=== PATIENT | female | born 1950 | race Asian ===

== ENCOUNTER 2022-12-02 13:01 | Outpatient (REF) | payer MEDICARE, SELFPAY ==
--- NOTE | ~2022-12-02 | MR_ITS ---
EXAMINATION: MR BRAIN WITHOUT AND WITH CONTRAST CLINICAL INFORMATION: Meningioma. COMPARISON: None available. TECHNIQUE: MRI of the brain was obtained using routine sequences without and following the administration of 7.5 mL of Gadavist intravenous contrast. FINDINGS: Moderately motion degraded exam. Changes of prior anterior vertex craniotomy for resection of an underlying mass. Chronic encephalomalacia of the superior frontal gyri bilaterally with hemosiderin staining. There is nonspecific slightly thickened linear enhancement along the right lateral margin of the falx cerebri, measuring approximately 0.4 x 2.6 x 1.3 cm. No demonstrated overtly suspicious nodular enhancement in this distribution. No focal restricted diffusion is demonstrated to suggest acute or subacute cerebral ischemia. No evidence of acute hemorrhagic products on heme-sensitive imaging. Additional scattered periventricular and deep white matter T2 FLAIR hyperintensities consistent with mild to moderate underlying microangiopathy. Proportional prominence of the ventricles and sulcal spaces without evidence of obstructive hydrocephalus. No abnormal mass effect. No midline shift. Normal appearance of the pituitary gland. Normal positioning of the cerebellar tonsils. Normal arterial and venous vascular flow voids are present. No abnormal contrast enhancement. Normal, homogeneous marrow signal. Moderate mucosal thickening of the paranasal sinuses. No signal abnormalities within the mastoids. Bilateral lens extractions. MR/MR head/brain wo/w con IMPRESSION: Moderately motion degraded exam. 1. Changes of prior anterior vertex craniotomy for resection of an underlying mass. Nonspecific slightly thickened linear enhancement along the right lateral margin of the falx cerebri. Within the limits of motion degradation, there is no demonstrated overtly suspicious nodular enhancement to strongly suggest disease recurrence. Comparison with prior exams if available would allow for better assessment of stability. 2. Chronic encephalomalacia of the bilateral superior frontal gyri with hemosiderin staining. 3. No acute intracranial abnormalities. No additional abnormal intracranial enhancement. 4. Mild to moderate underlying microangiopathy and generalized cerebral volume loss.
== END 2022-12-02 13:02 | disposition home or self-care (01) ==
LOC: HO.MRI 13:01
PROVIDERS: Visit Provider Psychiatry & Neurology Neurology
DX: D32.9 Benign neoplasm of meninges, unspecified (principal)
CPT/HCPCS: 70553; A9585

== ENCOUNTER 2024-12-13 12:00 | Outpatient (AMB) | payer MEDICARE, SELFPAY ==
--- NOTE | 2024-12-13 12:03 | MHC.OFFVIS ---
Intake Visit Reasons: 6 mnts dementia Accompanied by: Daughter Allergies No Known Allergies Allergy (Verified 12/13/24 12:08) Medication List - Last Reconciled 12/13/24 by Giselle Chahal CNP alendronate 70 mg PO QWEEK lisinopril 40 mg PO DAILY metformin 1,000 mg PO DAILY metoprolol tartrate 25 mg PO BID mirabegron ER (Myrbetriq) 50 mg PO DAILY nadolol 20 mg PO DAILY pravastatin 20 mg PO DAILY rifampin 150 mg PO BID sertraline 50 mg PO DAILY vibegron (Gemtesa) 75 mg PO DAILY HPI Comments Details: 74 yo woman with intracranial meningioma resection at [facility] in 2016, headaches, and multifactorial dementia. She was getting nervous and was afraid of getting lost or her daughter may leave her. Memory was slowly getting worse. She was here with her daughter. She was living with her son. Memory was declining some. She was more forgetful and was confused at times. She had trouble following conversations, especially if there were more than two people involved. Headaches were okay. She had 3 falls in the last 6 months, did not hit head. She had anemia and was being treated with iron infusions, last was last week. Sleep was okay, but still having vivid dreams. [facility] Medical History (Updated 12/13/24 @ 12:07 by Giselle Chahal CNP) Multifactorial dementia Mild dementia Cerebral microvascular disease Encephalomalacia Peripheral neuropathy Migraine MCI (mild cognitive impairment) Meningioma Diabetes mellitus Review of Systems Const Denies chills, Denies daytime sleepiness, Reports difficulty sleeping, Denies fatigue, Denies fever(s), Denies frequent falls, Reports headache(s), Denies increased appetite, Reports poor appetite, Denies snoring, Denies weakness, Denies weight gain and Denies weight loss Eyes Denies loss of vision ENT Denies vertigo, Denies dizziness and Reports headache(s) Card Denies chest pain at rest, Denies chest pain with activity, Denies syncope, Denies leg edema and Denies palpitations Resp Denies snoring GI Denies constipation, Denies heartburn, Denies diarrhea and Denies nausea Denies urinary frequency, Denies urinary incontinence and Denies urinary urgency Musc Denies abnormal gait, Denies numbness and Denies tingling Skin/Breast Denies dry skin and Denies rash Neuro Denies abnormal gait, Denies vertigo, Denies dizziness, Denies syncope, Denies frequent falls, Reports headache(s), Denies lack of coordination, Denies loss of vision, Reports memory loss, Denies numbness, Denies restless legs, Denies seizure-like activity, Denies tingling, Denies paresthesias, Denies tremor(s) and Denies weakness Psych Reports anxiety, Reports depression, Denies auditory hallucinations, Reports memory loss, Denies visual hallucinations and Denies suicidal ideation Endo Denies fatigue and Denies palpitations Physical Exam Const Other: General Appearance:? normal, in no acute distress. Skin:? no rashes, no significant birthmarks. Heart:? S1, S2 normal, no murmurs. Lungs:? clear anteriorly and posteriorly. Extremities:? no edema. Psych:? alert, cooperative with exam. Neuro Other: Mental Status:?Alert, normal affect.?She is unable to tell me her age. She was able to tell me her birthdate. Cranial Nerves:?Pupils are equal, round and reactive to light. External occular muscles are intact. Visual guillen are full. Face is symmetrical. Facial sensations are normal. Tongue is midline. Palate elevates symmetrically. Shoulder shrugging is normal. Hearing to bedside conversation is normal. Sensory Exam:?....? Coordination:?No ataxia,?no titubation.? Gait Exam: Within normal limits. Cerebellar Signs:?Idfjde-de-ysas was okay. Extrapyramidal System:?No tremor, rigidity with normal facial expressions.? Pronator Drift:?Not present.? Involuntary Movements:?No tremors seen.? Speech:?Normal.? Assessment & Plan Assessment & Plan (1) Multifactorial dementia: Code(s): F03.90 - Unspecified dementia, unspecified severity, without behavioral disturbance, psychotic disturbance, mood disturbance, and anxiety Category: Medical Plan: Continue sertraline 50mg 1 tablet daily Discussed other treatment options available, including addition of donepezil or memantine, declining at this time. (2) Migraine: Code(s): G43.909 - Migraine, unspecified, not intractable, without status migrainosus Category: Medical Qualifiers: Migraine type: unspecified Status migrainosus presence: without status migrainosus Intractability: not intractable Qualified Code(s): G43.909 - Migraine, unspecified, not intractable, without status migrainosus Plan: . Medications: New sertraline 50 mg PO DAILY 90 tabs 1RF 90 days Discontinued sertraline Discontinued Reason: Order 50 mg PO DAILY Coding Level of Care Code Est Pt Level 4 (32259) Diagnoses Multifactorial dementia F03.90 Migraine without status migrainosus, not intractable, unspecified migraine type G43.909 Migraine type: unspecified Status migrainosus presence: without status migrainosus Intractability: not intractable
--- OUTSIDE RECORDS SUMMARY | 2024-12-13 12:56 | XMS_ITS | Clinical Summary ---
Author Organization [address] Address [address] [place] [phone] Phone Care Team Providers Care Immigration Associate Name Role Phone Unavailable Primary Care Provider Unavailabl e Social History Tobacco Use Types Packs/Day Years Used Date Smoking Tobacco: Never Assessed Comments Unknown Sex and Gender Information Value Date Recorded Sex Assigned at Not on file Legal Sex Female 9:33 AM EST Gender Identity Not on file Sexual Orientation Not on file Plan of Treatment Health Maintenance Due Date Last Done Comments HIV screening 01/10/1961 Hepatitis C screening 01/10/1966 Tetanus adult (Td q 10,TDAP once) 1968 Lipid disorder screening 1988 Diabetes screening 01/10/1993 Pneumococcal Vaccine (50+ ye ars) (1 of 1 - PCV) 01/10/1998 Shingles vaccine (Shingrix) (1 of 2 - Shingrix (RZV) 2 Dose Standard Series) 01/10/1998 Osteoporosis screening (bone density) 01/10/2013 RSV Immunization (1 - 1-dose 75+ series) 01/10/2023 Covid-19 vaccine series ( season) 2024 Influenza vaccine 01/24/2025 Breast cancer screening Discontinued Cervical cancer screening Discontinued Colon cancer screening, Colonoscopy Discontinued Meningococcal Vaccine Aged Out No yuli lisset eligible based on patient's age to complete this topic
--- OUTSIDE RECORDS SUMMARY | 2024-12-13 12:56 | XMS_ITS | Encounter Summary ---
Author Organization [facility] Address [address] [place] [address] Phone Care Team Providers Care Filtering Machine Tender Name Role Phone Pcp, Not Required Primary Care Provider Unavaila ble Encounter Details Date Type Department Care Team ([facility] st Contact Info) Description 11/19/2020 Ophth Exam [facility] [address] [place] [address] Letitia Lewis MD [address] [place] [address] [email or web address]. U Social History Tobacco Use Types Packs/Day Years Used Date Smoking Tobacco: Never Smokeless Tobacco: Never Alcohol Use Standard Drinks/Week Comments Not Currently 0 (1 standard drink = 0.6 oz pur e alcohol) Comments No Sex and Gender Information Value Date Recorded Sex Assigned at Not on file Legal Sex Female 9:38 AM EDT Gender Identity Not on file Sexual Orientation Not on file documented as of this encounter Plan of Treatment Not on file documented as of this encounter Visit Diagnoses Not on filedocumented in this encounter Care Teams Filtering Machine Tender Relationship Specialty Start Date End Date Pcp, Not Required [address] [place] [address] PCP - General 11/19/20 documented as of this encounter Additional Source Comments The information contained in this document represents components of the legal health record. It is not the complete legal health record.[facility]
--- OUTSIDE RECORDS SUMMARY | 2024-12-13 12:56 | XMS_ITS | Encounter Summary ---
Author Organization [facility] Address [address] [place] [address] Care Team Providers Care Neurodiagnostic Tech Name Role Phone Jadyn Alvarado DO Primary Care Provider [phone] Reason for Visit * Reason Comments Anemia Encounter Details Date Type Department Care Team (Late Contact Info) Description 11/18/2024 Billing Patient Not Present Gastroenterology - [address] [phone] Jules Fuller MD [address] [address] Social History Tobacco Use Types Packs/Day Years Used Date Smoking Tobacco: Never Smokeless Tobacco: Never Alcohol Use Standard Drinks/Week Comments No 0 (1 standard drink = 0.6 oz pur e alcohol) Interpersonal Safety Answer Date Record ed Physical Abuse 11/12/2024 Verbal Abuse 11/12/2024 Comments No Sex and Gender Information Value Date Recorded Sex Assigned at Female 11/23/2024 9:18 AM EDT Legal Sex Female 1:18 PM EST Gender Identity Female 11/23/2024 9:18 AM EDT Sexual Orientation Straight 11/23/2024 9: 18 AM EDT documented as of this encounter Plan of Treatment Upcoming Encounters Date Type Department Care Team (Late st Contact Info) Description 12/29/2024 11:30 AM EDT Office Visit Internal Medicine - [facility] [address] [place] [address] Jadyn Alvarado DO [address] [place] [address] 01/31/2025 10:00 AM EDT Office Visit [facility] Hematology Oncology [address] [place] [address] Kat Nam PA [address] [place] [address] documented as of this encounter Visit Diagnoses Not on filedocumented in this encounter Additional Health Concerns Assessment Noted Time PHQ-9 Depression Total Score: 0 07/12/19 25 9:07 AM EST documented as of this encounter Care Teams Neurodiagnostic Tech Relationship Specialty Start Date End Date Jadyn Alvarado DO [address] [place] [address] PCP - General 03/08/24 documented as of this encounter
--- OUTSIDE RECORDS SUMMARY | 2024-12-13 12:56 | XMS_ITS | Clinical Summary ---
Author Organization [facility] Address [address] [place] [address] Care Team Providers Care Forestry Supervisor Name Role Phone Mairna Goetz MD Primary Care Provider + Medications Medication Sig Dispensed Refills Start Date End Date Status pravastatin (PRAVACHOL) tablet 20 mg Take 20 mg by mouth daily. 1 06/10/2018 Active metoprolol succinate (TOPROL-XL) 24 hr tablet 25 mg Take 25 mg by mouth daily. 1 06/04/2018 Active lisinopril (PRINIVIL,ZESTRIL) tablet 30 mg Take 30 mg by mouth daily. 3 07/14/2018 Active REFRESH OPTIVE ADVANCED 0.5-1-0.5 % SOLN INSTILL 1 DROP INTO BOTH EYES 4 TIMES A DAY 6 07/11/2018 Active traMADol (ULTRAM) 50 MG tablet TAKE 1/2-1 TABLET BY MOUTH TWICE A DAY NEEDED FOR PAIN FOR UP TO 7 DAYS 0 07/23/2018 Active metFORMIN (GLUCOPHAGE) tablet 500 mg Take 500 mg by mouth 2 (two) times a day with meals. 0 Active aspirin EC 81 MG tablet Take 81 mg by mouth daily. 0 Active albuterol (PROVENTIL HFA;VENTOLIN HFA) 108 (90 Base) MCG/ACT inhaler Inhale 2 puffs into the lungs every 6 (six) hours as needed for wheezing. 0 Active alendronate (FOSAMAX) tablet 70 mg Take 70 mg by mouth every 7 days. 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 lower extremity 07/31/2018 Nondisplaced fracture of fif th metatarsal bone, left foot, initial encounter for closed fracture 07/31/2018 Social History Tobacco Use Types Packs/Day Years Used Date Smoking Tobacco: Never Smokeless Tobacco: Never Alcohol Use Standard Drinks/Week Comments No 0 (1 standard drink = 0.6 oz pur e alcohol) Sex and Gender Information Value Date Recorded Sex Assigned at Not on file Gender Identity Not on file Sexual Orientation Not on file Job Start Date Occupation Industry Not on file Not on file Not on file Last Filed Vital Signs Vital Sign Reading Time Taken Comments Blood Pressure - - Pulse - - Temperature - - Respiratory Rate - - Oxygen Saturation - - Inhaled Oxygen Concentration - - Weight 77.1 kg (170 lb) 07/31/2018 8:51 AM EST Height 165.1 cm (5' 5 ) 07/31/2018 8:51 AM EST Body Mass Index 28.29 07/31/2018 8:51 AM EST Plan of Treatment Health Maintenance Due Date Last Done Comments Hepatitis C Screening 1950 COVID-19 Vaccine (#1) 1950 Depression Screening 1960 Preventative Health Evaluation 01/10/1966 DTap / Tdap / Td (1 - Tdap) 01/10/1967 Shingrix-Zoster Vaccine (1 of 2) 01/10/1998 Fall Risk Assessment 01/10/2013 Osteoporosis Screening (DEXA Scan) 01/10/2013 Pneumococcal Vaccine (1 of 1 - PCV) 01/10/2013 RSV Adult > 60+ Yrs or Pregn ant (1 - 1-dose 75+ series) 01/10/2023 Influenza Vaccine (#1) 2025 Hepatitis B Vaccines Aged Out No long er eligible based on patient's age to complete this topic RSV Ped < 20 months Aged Out No longe r eligible based on patient's age to complete this topic Care Teams Forestry Supervisor Relationship Specialty Start Date End Date Marina Goetz MD [address] [facility] [address] [facility] [place] [phone] PCP - General Internal Medicine 07/13/18
--- OUTSIDE RECORDS SUMMARY | 2024-12-13 12:56 | XMS_ITS ---
Author Name Kiana MCNEILLLalo Address [address] [place] [address] Phone [phone] [facility] Care Team Providers Care It Consultant Name Role Phone Kiana Camilla Unavailable [phone] Signed ORDERS, [place] Unavailable Unavailable Unavailable Unavailable Unavailable Unavailable [phone] [facility] Unavailable Heydi Yeboah Unavailable [phone] Geronimo Mooney Unavailable [phone] YANET SNIDER Unavailable [phone] Reason for Referral Not Available Allergies, adverse reactions, alerts No known allergies History of medication use Medication Class Instructions Start Date End Date Alendronate Sodium 70 mg Tab TAKE 1 TABL ET BY MOUTH ONE TIME PER WEEK 2021-06-18 2024-10-26 Metoprolol Succinate ER 25 m g Tab ER 24hr TAKE 1 TABLET BY MOUTH EVERY DAY 2021-07-06 2024-10-26 Myrbetriq 50 mg Tab ER 24hr TAKE 1 TABLE T BY MOUTH EVERY DAY 2021-11-16 2024-10-26 Pravastatin Sodium 20 mg Tab TAKE 1 TABL ET BY MOUTH EVERY DAY 2021-09-11 No Data Available Lisinopril 40 mg Tab TAKE 1 TABLET BY MO UTH EVERY DAY 2021-11-29 No Data Available Moxifloxacin 0.5 % Solution USE 1 DROP I NTO LEFT EYE FOUR TIMES A DAY DIRECTED TO BEGIN 3 DAYS BEFORE SURGERY 2021-12-03 2022-12-12 metFORMIN 1000 mg Tab TAKE 1 TABLET BY M OUTH once DAILY (WITH MEALS) 2021-06-18 No Data Available Albuterol Sulfate (2.5 mg/3ML) 0.083% Nebulization Solution INHALE CONTENTS OF 1 VIAL BY NEBULIZATION EVERY 4 HOURS NEEDED FOR WHEEZING. 2022-03-13 2024-10-26 Advair HFA 45-21 MCG/ACT Aerosol INHALE 2 PUFFS INTO THE LUNGS TWICE A DAY 2022-03-22 2024-10-26 traMADol 50 mg Tab TAKE 1 TABLET BY DION TH EVERY 8 HOURS NEEDED FOR PAIN FOR UP TO 7 DAYS. 2022-04-05 2024-10-26 Artificial Tears 0.2-0.2-1 % Solution Ophthalmic 1 drop each eye at bedtime 2022-04-11 2024-10-26 traMADol 50 mg Tab 1 tab by mouth every 8 hrs 2023-08-11 Tylenol 8hr 650 mg Tab ER2 1 tab in the morning and 1 tab in the evening 2022-04-11 2024-11-08 Flovent HFA 110 MCG/ACT Aerosol INHALE 1 PUFF INTO THE LUNGS 2 TIMES DAILY 2022-10-17 2022-12-12 Fluticasone Propionate 50 MCG/ACT Suspension SPRAY 1 SPRAY BY INTRANASAL ROUTE TWICE A DAY DIRECTED 2022-06-18 2024-10-26 hydrOXYzine 10 mg Tab TAKE 1 TABLET BY M OUTH 2 TIMES DAILY NEEDED FOR ITCHING FOR UP TO 180 DAYS. 2022-08-20 2022-12-12 Oxybutynin Chloride ER 10 mg Tab ER 24hr TAKE 1 TABLET BY MOUTH EVERY DAY 2022-04-08 2022-12-12 predniSONE 20 mg Tab TAKE 2 TABLETS EVER Y DAY BY ORAL ROUTE IN THE MORNING FOR 3 DAYS. 2022-06-18 2022-12-12 Cetirizine 10 mg Tab TAKE 1 TABLET BY MO UTH EVERY DAY 2022-07-08 2024-10-26 GaviLyte-G 236 GM Solution TAKE 8 OUNCE BY MOUTH DIRECTED FOLLOW PREP INSTRUCTIONS GIVEN BY YOUR DOCTOR'S OFFICE 2023-02-19 2023-08-11 MELATONIN 1 MG TABLET TAKE 1 TABLET BY M OUTH AT BEDTIME NEEDED FOR INSOMNIA 2023-03-13 2024-10-26 Nadolol 20 mg Tab TAKE 1 TABLET BY DION TH EVERY DAY 2023-05-15 No Data Available [facility] TO USE WITH ALBU TEROL INHALER 2023-03-13 2024-10-27 Ferrous Sulfate 325 (65 Fe) MG Tab TAKE 1 TABLET BY MOUTH EVERY DAY 2023-02-04 No Data Available Lidocaine-Prilocaine 2.5-2.5 % Crm 1gm to affected area BID PRN neuropathic pain 2023-08-11 2024-10-26 DULoxetine 30 mg Cap delayed rel TAKE 1 CAPSULE BY MOUTH EVERY DAY 2023-08-11 2024-10-26 Meclizine 12.5 mg Tab TAKE 1 TABLET BY M OUTH TWICE A DAY NEEDED 2023-08-11 2024-10-26 Benzonatate 200 mg Cap TAKE 1 CAPSULE BY MOUTH THREE TIMES A DAY NEEDED FOR 7 DAYS 2022-06-18 2024-10-26 Sertraline 50 mg Tab TAKE 1 TABLET BY MO UTH EVERY DAY 2023-12-02 No Data Available Vitamin D (Ergocalciferol) 1.25 mg (42578 UT) Cap TAKE 1 CAPSULE (50,000 UNITS TOTAL) BY MOUTH ONCE WEEKLY 2024-03-29 2024-10-26 rifAMPin 150 mg Cap TAKE 1 CAPSULE BY MO UTH TWICE A DAY 2024-04-29 2024-10-26 Gemtesa 75 mg Tab TAKE 1 TABLET BY DION TH EVERY DAY 2024-05-13 No Data Available Cholestyramine 4 GM Packet 1 packet once a day 2024-05 No Data Available Methocarbamol 750 mg Tab TAKE 2 TABLETS BY MOUTH 3 TIMES A DAY FOR 7 DAYS NEEDED FOR SPASM 2024-07-02 2024-10-26 Lidocaine 5 % Patch APPLY 1 PATCH as nee ded APPLY TO PAINFUL AREA FOR 12 HOURS PER DAY, REMOVE FOR 12 HOURS 2024-07-12 No Data Available Albuterol Sulfate HFA 108 (9 0 Base) MCG/ACT Aerosol Solution Inhalation 2 puffs as needed 2024-10-26 No Data Available Breo Ellipta 200-25 MCG/ACT Aerosol Powder Breath Activated Inhalation TAKE 1 PUFF BY MOUTH EVERY DAY 2024-10-26 No Data Available osteo biflex she 1 tablet as need ed for knee pain 2024-10-26 No Data Available Problem List Problem Status Onset Date Resolved Date Synopsis Hyperlipidemia associated with type 2 diabetes mellitus Active 2022-04-11 N/A Cholesterol 12 2 TRIGLYCERIDES 100 HDL CHOLESTEROL 59 LDL CALCULATED 43 TC-HDLC RATIO 2.106/05/2022 Lfdpfhg-ciwcsgflfgm-dhmdouu Lipid panel-healthy diet-follow up with pcp Activity intolerance Active 2022-12-12 N/A Walk s for 20 meters, feels has sensation of SOB. Leg edema. visited ER. 12/04-12/05/22 leg edema. Severe anemia, 2 u of RBC. No record received yet. No change in medication. Also have work up done for CHF, pending Echo appointment per daughter.Leg edema gone, but SOB persisted, using inhalers. Now investigating if she has CHF by PCP, keep appointment of Echo and FUs Type 2 diabetes mellitus with chronic kidney disease Resolved 2022-04-11 2022-12-16 GLYCATED HEMOGLO BIN A1C 7.6 (H) 10/11/22GLUCOSE 198 (H) 10/11/22GLOMERULAR FILTRATION RATE 95 10/11/2265Cgjzotp-kydnovcei-wp abetic dietDoes not like to check BG at home. Fasting 150-160 range, recently increased metformin to 1000 BID, this should help to lower it futher Other problems related to medical facilities and other health care Active 2023-08-11 N/A .When memb er to call: 1. If bp is elevated sbp>150; dbp>90 or symptomatic-h/a, dizziness, cp, sob. 2. if there is a fall 3. if BS >300 or BS<90 or symptomatic; i.e., dizzy, off balance , shaky, general weakness. 4. if UTI symptoms arise-urinary frequency, dysuria, low and pain. 5. if pain in knees increases/ or joint pain increased Please remember to call CBContinue to see PCP. Follow-up with [facility] as needed for any acute or disease education needs that may arise 16/12.what should be done when the member calls: see each individual diagnosis for contingency plan Lumbago with sciatica Active 2022-04-11 N/A Man aged-TylenolSciatica to both sides. Radiates to knees on both sides. Worse with ambulation. Open to try cymbalta 30 mgLidocaine cream Ganglion cyst Active 2023-08-11 N/A Reoccurring last happened last year. It appears to be a ganglion cyst on the left mid-finger; see photo. Can use heat compress, if no resolving in 1 month, see PCP for aspiration. Can disappear by self Vertigo Active 2023-08-11 N/A Occurs daily u lucina wakening. No SOB or chest palpitation nor chest pain. No N or V. Member is to take BP when this occurs, usually self resolving in 10 minutes, can try meclizine as needed. Osteoporosis Active 2022-04-11 N/A Managed-daniel ashley weekly-routine diagnostics-follow up with pcp07/06/24-Eat a balanced diet with enough calcium, vitamin D, and protein. Good sources of protein include plant proteins like beans and nuts, low-fat dairy, fish, skinless poultry, and lean cuts of meat. Participate in regular physical activity, such as weight-bearing exercises, to help keep bones strong and lower the risk of falls. Keep routine follow up with local provider as scheduled and follow up with CB prn. Overactive bladder with Nocturia Active 2022-04-11 N/A Managed-Myrbetri q-routine follow up with pcp Overweight Resolved 2022-04-11 2024-11-01 Ngjlilw-vwvm-g ncourage regular exercise to include stretchingNo pain right now07/06/24Eat more fruits, vegetables, and whole grains, lean proteins and healthy fats Limit refined carbohydrates, sugar, and sweetened foods, Eat smaller portions, Eat slowly. Get routine exercise for at least 30 minutes 3 times weekly, start slow and work up. Get adequate sleep and maintain a healthy weight. Follow up prn. Type 2 diabetes mellitus with renal complication Resolved 2023-08-11 2024-07-09 Shikha kenyon, stable If her blood sugar is less than 70, and she is shaking, sweaty, and feels nausea, give 6 oz of fruit juice, or 4 glucose tablet, or 6 oz of soda to quickly raise blood sugar, recheck in 10 minutes, if still low, repeat. If above 70 and no symptoms, eat a small protein rich snack. Type 2 diabetes mellitus with stage 3a chronic kidney disease Active 2022-05-07 N/A Managed, most re cent GFR 98, 10/11/22-routine follow up-avoid nephrotoxic /11/25-Avoid nephrotoxic agents. Strict dietary management with reduced sodium, phosphorus, and potentially potassium depending on lab values, regular moderate exercise, blood pressure control, the condition and slow progression. History of meningioma Active 2023-08-11 N/A Rosa drake by [facility] neurosurgery starting in October 2014, Dr. Johns right frontal 5 x 4 x 4 cm calcified falcine meningioma with left arm and leg numbnessS/P resection 06/01/15; annual follow-up and MRI07/06/24-stable, continues to follow up with local provider annually for surveillance. Asthma with COPD Active 2022-04-11 N/A Managed- Breo Ellipta-albuterol INHHas neb machine. C ontingency plan:1. Start antibiotic(Azithromycin, doxycycline, or levaquin), prednisone 40 mg daily for 3 days, 2. Increase Neb treatments/MDI use to q4h x3 days3. Call CB at the first sign of SOB or increased cough and sputum production. 4. Schedule f/u with primary INSURANCE REPRESENTATIVE in 1-2 days. 07/06/24-Continue INH as directed Avoid cigarette smoke, smoke from fireplaces, and wood-burning stoves, avoid environmental exposures such as car exhaust fumes and avoid outdoor activities/exercise when pollution levels are high. Use zippered covers on mattresses and pillows, wash bedding in hot water, and remove clutter, avoid mold, avoid pets and cockroaches, avoid stress, cold air may trigger a flare, Avoid aerosol sprays and perfumes. Follow up prn.11/08/24 Breathing is ok. Hypertensive heart disease with stage 3a chronic kidney disease Active 2022-04-11 N/A Managed-L isinopril-metoprol ol succinateNadolol-routine follow up.Discussed low-salt dietwill monitor edema and weight, follows cardiologyMonitors BP daily If blood pressure is>170/90 and symptomatic with headache, dizziness, facial flashing, can take lisinopril 10 (give 1/2 tablet)*1, recheck BP in 1 hour, rest. If lower 90/50s and dizziness, lay flat, elevate legs over pillows, increase fluidscontinue CV medications. Monitor Bp daily and prn. Diabetic diet with low sodium and exercise as tolerated. Follow up 90 days. Unspecified dementia, unspecified severity, with mood disturbance Active 2024-07-09 N/A Rx: on ser tralineFamily / CG supportCalm and supportive environment, keep a consistent routine with ADLs engaging in physical activities such as walking can decrease mood / behavior issues. Follow up prn. Type 2 diabetes mellitus with unspecified diabetic retinopathy with macular edema, and dry eye syndrome of bilateral lacrimal glands Active 2022-04-11 N/A Managed-artifici al tears07/06/24-continue DM medications as directed. Monitor BG levels daily and prn. Diabetic diet with low sodium, exercise as tolerated. Routine follow up with Ophthalmology/Retina specialist to complete eye exams. Liver cirrhosis with History of hepatitis B, Portal hypertension, Secondary esophageal varices without bleeding Active 2023-08-11 N/A FU with GI10/21/24-10/22/24 [facility]: Hospitalized with anemia, concern for GI B. Received IV iron and one unit PRBC. 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 Plan for capsule endoscopy: 11/10/24. Continues with oral iron repletion. History of recent hospitalization Active 2024-11-01 N/A Hospital dischar ge paperwork requested/reviewed. [facility] 10/21/24-10/22/24, anemiaReason for Hospitalization and summary of hospital course: Subjective: Spoke to daughter Debbi and member. They have follow up to do a capsule endoscopy on 11/10/24. Denies abdominal pain, hematemesis, hematochezia. She has dark BMs, however she is on oral iron. Continues to feel fatigued. At times confused, doesn't understand what people are saying to her but this is not new. Has been experiencing weight loss due to low appetite. Weighed 149 lbs today, 11 lb weight loss since June 2024. She is not taking any nutritional supplements, would like to try Ensure. No falls since she has returned home. Discussed keeping her hydrated, count to 10 with positional changes, july in place prior to ambulating. She has an assistive device, but she does not like to use it. Daughter will encourage her to use it, discussed she can experience dizziness and fatigue due to anemia. Home Health or DME needs: Ensure for weight lossDiscussed risks or red flags for readmission/contingency plan.capsule endoscopy: 11/10/24, PCP visit is planned for: 12/27/24Advance care planning discussion - See Legal Weight lossDecreased appetiteFrailty Active 2024-11-01 N/A Daughter reports appetite is decreased over the past few months. Weight loss from 160 lbs in June 2024 > 149 lbs in October 2024 which is greater than 5% unintentional weight loss in the last 3-6 months. BMI still within healthy range at 24.79. Will order Ensure twice daily due to ongoing weight loss, decreased appetite, weakness, fatigue, frequent falls. 11/08/24 wanted to discuss to have vanilla flavor glucerna, but as member BMI is 25, may not be able to be approved, it's better to call back to company to check when vanilla is available. Encounters Encounters Type Facility Date of Service Diagnosis/Co mplaint Pain Assessment - Pain Documented on a Pain Scale (1125F) [facility] ([place]) 04[place]20[place] Pain Assessment - Pain Documented on a Pain Scale (1125F) [facility] [place] Pain Assessment - Pain Documented on a Pain Scale (1125F) [facility] [place] Pain Assessment - Pain Documented on a Pain Scale (1125F) [facility] [place] Pain Assessment - Pain Documented on a Pain Scale (1125F) [facility] [place] Pain Assessment - Pain Documented on a Pain Scale (1125F) [facility] [place] Pain Assessment - Pain Documented on a Pain Scale (1125F) [facility] [place]20[place] Pain Assessment - Pain Documented on a Pain Scale (1125F) [facility] [place]22 Pain Assessment - Pain Documented on a Pain Scale (1125F) [facility] [place]2022 Age-related osteoporosis without current pathological fractureType 2 diabetes mellitus with diabetic chronic kidney diseaseHypertensive chronic kidney disease w stg 1-4/unsp chr kdnyType 2 diabetes mellitus with other specified complicationHyperlipidemia, unspecifiedOveractive bladderNocturiaDry eye syndrome of bilateral lacrimal glandsLumbago with sciatica, unspecified sideOverweightChronic obstructive pulmonary disease, unspecifiedChronic kidney disease, stage 3 unspecified Estab. patient 30-39min; chronic exacerbation, 2 stable chronic or 1 acute illness add add modifier 95 for video, (do not use for phone, instead use [id number]) [facility] ([place] Chronic obstructive pulmonar y disease, unspecifiedAge-related osteoporosis without current pathological fractureType 2 diabetes mellitus with other specified complicationHyperlipidemia, unspecifiedOveractive bladderNocturiaDry eye syndrome of bilateral lacrimal glandsLumbago with sciatica, unspecified sideOverweightOther general symptoms and signsType 2 diabetes mellitus with diabetic chronic kidney diseaseHypertensive chronic kidney disease w stg 1-4/unsp chr kdnyChronic kidney disease, stage 3 unspecified Estab. patient 30-39min; chronic exacerbation, 2 stable chronic or 1 acute illness add add modifier 95 for video, (do not use for phone, instead use [id number]) [facility] [place] Estab. patient 30-39min; chronic exacerbation, 2 stable chronic or 1 acute illness add add modifier 95 for video, (do not use for phone, instead use [id number]) [facility] [place] Estab. patient 30-39min; chronic exacerbation, 2 stable chronic or 1 acute illness add add modifier 95 for video, (do not use for phone, instead use [id number]) [facility] ([place] Estab. patient 30-39min; chronic exacerbation, 2 stable chronic or 1 acute illness add add modifier 95 for video, (do not use for phone, instead use [id number]) [facility] ([place] 12/[place] Estab. patient 30-39min; chronic exacerbation, 2 stable chronic or 1 acute illness add add modifier 95 for video, (do not use for phone, instead use [id number]) [facility] [place] Estab. patient 30-39min; chronic exacerbation, 2 stable chronic or 1 acute illness add add modifier 95 for video, (do not use for phone, instead use [id number]) [facility] [place] Estab. patient 30-39min; chronic exacerbation, 2 stable chronic or 1 acute illness add add modifier 95 for video, (do not use for phone, instead use [id number]) [facility] [place] Estab. patient 30-39min; chronic exacerbation, 2 stable chronic or 1 acute illness add add modifier 95 for video, (do not use for phone, instead use [id number]) [facility] [place] Estab. patient 30-39min; chronic exacerbation, 2 stable chronic or 1 acute illness add add modifier 95 for video, (do not use for phone, instead use 44217-39) [facility] [place] Estab. patient 30-39min; chronic exacerbation, 2 stable chronic or 1 acute illness add add modifier 95 for video, (do not use for phone, instead use 09254-90) [facility] [place]/2022 Estab. patient 30-39min; chronic exacerbation, 2 stable chronic or 1 acute illness add add modifier 95 for video, (do not use for phone, instead use [id number]) [facility] ([place] 08/[place]/2023 Chronic obstructive pulmonar y disease, unspecifiedAge-related osteoporosis without current pathological fractureHypertensive chronic kidney disease w stg 1-4/unsp chr kdnyType 2 diabetes mellitus with other specified complicationHyperlipidemia, unspecifiedOveractive bladderNocturiaDry eye syndrome of bilateral lacrimal glandsLumbago with sciatica, unspecified sideOverweightOther general symptoms and signsOther problems related to medical facilities and other health careGanglion, unspecified siteDizziness and giddinessType 2 diabetes mellitus with other diabetic kidney complicationUnspecified cirrhosis of liverChronic kidney disease, stage 3 unspecifiedPersonal history of other benign neoplasmPersonal history of other infectious and parasitic diseases Estab. patient 30-39min; chronic exacerbation, 2 stable chronic or 1 acute illness add add modifier 95 for video, (do not use for phone, instead use [id number]) [facility] ([place] Estab. patient 30-39min; chronic exacerbation, 2 stable chronic or 1 acute illness add add modifier 95 for video, (do not use for phone, instead use [id number]) [facility] ([place] 08[place]/20[place] Estab. patient 30-39min; chronic exacerbation, 2 stable chronic or 1 acute illness add add modifier 95 for video, (do not use for phone, instead use [id number]) [facility] [place] Estab. patient 30-39min; chronic exacerbation, 2 stable chronic or 1 acute illness add add modifier 95 for video, (do not use for phone, instead use 27912-20) [facility] [place]20[place] Estab. patient 30-39min; chronic exacerbation, 2 stable chronic or 1 acute illness add add modifier 95 for video, (do not use for phone, instead use [id number]) [facility] [place] 08[place]/20[place] Estab. patient 30-39min; chronic exacerbation, 2 stable chronic or 1 acute illness add add modifier 95 for video, (do not use for phone, instead use 54585-16) [facility] ([place] 08/[place]/2023 Estab. patient 30-39min; chronic exacerbation, 2 stable chronic or 1 acute illness add add modifier 95 for video, (do not use for phone, instead use [id number]) [facility] ([place] 08/[place]/2023 Estab. patient 30-39min; chronic exacerbation, 2 stable chronic or 1 acute illness add add modifier 95 for video, (do not use for phone, instead use 75328-68) [facility] ([place] 08/11/2023 Estab. patient 30-39min; chronic exacerbation, 2 stable chronic or 1 acute illness add add modifier 95 for video, (do not use for phone, instead use [id number]) [facility] ([place] 08/[place]/2023 Estab. patient 30-39min; chronic exacerbation, 2 stable chronic or 1 acute illness add add modifier 95 for video, (do not use for phone, instead use 51637-10) [facility] ([place] 08/[place]/2023 Estab. patient 20-29min; 1 stable chronic or 2 minor; add add modifier 95 for video, modifier 93 for phone [facility] ([place] 07/06/2024 Chronic obstructive pulmonar y disease, unspecifiedType 2 diabetes mellitus with diabetic chronic kidney diseaseHyp hrt & chr kdny dis w/o hrt fail, w stg 1-4/unsp chr kdnyChronic kidney disease, stage 3aType 2 diabetes mellitus with other specified complicationHyperlipidemia, unspecifiedType 2 diabetes w unsp diabetic retinopathy w macular edemaDry eye syndrome of bilateral lacrimal glandsPortal hypertensionUnspecified cirrhosis of liverSecondary esophageal varices without bleedingUnspecified dementia, unspecified severity, with mood disturbanceOther general symptoms and signsGanglion, unspecified sitePersonal history of other infectious and parasitic diseasesPersonal history of other benign neoplasmDizziness and giddinessAge-related osteoporosis without current pathological fractureOveractive bladderNocturiaLow back pain, unspecifiedOverweightOther problems related to medical facilities and other health care Estab. patient 20-29min; 1 stable chronic or 2 minor; add add modifier 95 for video, modifier 93 for phone [facility] ([place] 07/06/[place] Estab. patient 20-29min; 1 stable chronic or 2 minor; add add modifier 95 for video, modifier 93 for phone [facility] ([place] 07/06/2024 Estab. patient 20-29min; 1 stable chronic or 2 minor; add add modifier 95 for video, modifier 93 for [facility] [place] 07/06/2024 Estab. patient 20-29min; 1 stable chronic or 2 minor; add add modifier 95 for video, modifier 93 for [facility] [place] 07/06/2024 Estab. patient 20-29min; 1 stable chronic or 2 minor; add add modifier 95 for video, modifier 93 for phone [facility], ([place] 07/06/2024 Estab. patient 20-29min; 1 stable chronic or 2 minor; add add modifier 95 for video, modifier 93 for [facility], ([place] 07/06/2024 RN, CN or CP time with patient by phone; use with 1111F, BP, A1c or other CPTII codes [facility], ([place]) 10/26/2024 Encounter for other specifie d aftercare RN, CN or CP time with patient by phone; use with 1111F, BP, A1c or other CPTII codes [facility] ([place] 10/26/2024 Estab. patient 10-29min; 1 minor problem; add add modifier 95 for video, modifier 93 for [facility], ([place] 11/01/2024 Unspecified cirrhosis of liverPersonal history of other infectious and parasitic diseasesPortal hypertensionSecondary esophageal varices without bleedingPersonal history of other medical treatmentOther problems related to medical facilities and other health careAbnormal weight lossAnorexiaAge-related physical debility Estab. patient 10-29min; 1 minor problem; add add modifier 95 for video, modifier 93 for [facility], ([place] 11/01/2024 Estab. patient 10-29min; 1 minor problem; add add modifier 95 for video, modifier 93 for [facility] [place] 11/01/2024 Estab. patient 10-29min; 1 minor problem; add add modifier 95 for video, modifier 93 for [facility] ([place] 11/08/2024 Chronic obstructive pulmonar y disease, unspecifiedOther problems related to medical facilities and other health careHyp hrt & chr kdny dis w/o hrt fail, w stg 1-4/unsp chr kdnyChronic kidney disease, stage 3aPersonal history of other medical treatmentAbnormal weight lossAnorexiaAge-related physical debility Estab. patient 10-29min; 1 minor problem; add add modifier 95 for video, modifier 93 for [facility] Estab. patient 10-29min; 1 minor problem; add add modifier 95 for video, modifier 93 for [facility]24 Vital Signs Date of Collection Vitals 2022-04-11 05:08:46 Height - 165.1 cmWei ght - 73.94 kgBody Mass Index (BMI) - 27.12 kg/m2BP Diastolic - 78.0 mm[Hg]BP Systolic - 126.0 mm[Hg] 2022-12-12 06:09:18 Weight - 72.58 kgBod y Mass Index (BMI) - 26.63 kg/m2BP Diastolic - 70.0 mm[Hg]BP Systolic - 130.0 mm[Hg] 2023-08-11 06:04:40 Weight - 73.48 kgBod y Mass Index (BMI) - 26.96 kg/m2BP Diastolic - 66.0 mm[Hg]BP Systolic - 128.0 mm[Hg]Heart Rate - 67.0 /minPain Scale - 7.0 {score} 2024-07-06 06:48:28 Height - 165.1 cmWei ght - 72.58 kgBody Mass Index (BMI) - 26.63 kg/m2BP Diastolic - 62.0 mm[Hg]BP Systolic - 140.0 mm[Hg]Pain Scale - 7.0 {score} 2024-11-01 13:47:58 Height - 165.1 cmWei ght - 67.59 kgBody Mass Index (BMI) - 24.79 kg/m2 2024-11-08 14:56:33 Height - 165.1 cmWei ght - 67.4 kgBody Mass Index (BMI) - 24.73 kg/m2 Social History Social History Social History Observation Description Effec tive Time Current Smoking Status Never smoker 2024-11-24 1 Sex Female History of Procedures Procedures Service Procedure code Service date Servicing provider Phone# Pain Assessment - Pain Documented on a Pain Scale (1125F) 1125F 2022-04-11 No Data Available No Data Jannette ilable Medication List Documented (1159F) 1159F 2022-04-11 No Data Available No Data Jannette ilable Medication Review by prescribing provider or pharmacist documented (1160F) 1160F 2022-04-11 No Data Available No Data Jannette ilable Functional Status Assessed (1170F) 1170F 2022-04-11 No Data Available No Data Avail able Advance Care Directive Advance care planning discussion documented in the medical record (1158F) 1158F 2022-04-11 No Data Available No Data Availa ble BMI obtained (3008F) 3008F 2022-04-11 No Data Availab le No Data Available DBP <80 (3078F) 3078F 2022-04-11 No Data Available No Data Available SBP < 130 (3074F) 3074F 2022-04-11 No Data Available No Data Available New patient,40-59min; chronic exacerbation, 2 stable chronic or 1 acute illness add add modifier 95 for video (do not use for phone, instead use 43346-72) 00631 2022-04-11 No Data Available No Data Availa ble Estab. patient 30-39min; chronic exacerbation, 2 stable chronic or 1 acute illness add add modifier 95 for video, (do not use for phone, instead use 72348-62) 03693 2022-12-12 No Data Available No Data Availa ble Medication List Documented (1159F) 1159F 2022-12-12 No Data Available No Data Jannette ilable Medication Review by prescribing provider or pharmacist documented (1160F) 1160F 2022-12-12 No Data Available No Data Jannette ilable Pain Assessment - NO pain present (1126F) 1126F 2022-12-12 No Data Available No Data A vailable BMI obtained (3008F) 3008F 2022-12-12 No Data Availab le No Data Available Advance Care Directive Advance care planning discussion documented in the medical record (1158F) 1158F 2022-12-12 No Data Available No Data Availa ble Advance care planning discussed and documented advance care plan or surrogate decision-maker was documented in the medical record. (1123F) 1123F 2022-12-12 No Data Available No Data Availa ble SBP 130-139 (3075F) 3075F 2022-12-12 No Data Availabl e No Data Available DBP <80 (3078F) 3078F 2022-12-12 No Data Available No Data Available No Data Available G8510 2022-12-12 No Data Available No Data Available Functional Status Assessed (1170F) 1170F 2022-12-12 No Data Available No Data Avail able Estab. patient 30-39min; chronic exacerbation, 2 stable chronic or 1 acute illness add add modifier 95 for video, (do not use for phone, instead use [id number]) 97669 2023-08-11 No Data Available No Data Availa ble Medication List Documented (1159F) 1159F 2023-08-11 No Data Available No Data Jannette ilable Medication Review by prescribing provider or pharmacist documented (1160F) 1160F 2023-08-11 No Data Available No Data Jannette ilable Pain Assessment - Pain Documented on a Pain Scale (1125F) 1125F 2023-08-11 No Data Available No Data Jannette ilable BMI obtained (3008F) 3008F 2023-08-11 No Data Availab le No Data Available Advance Care Directive Advance care planning discussion documented in the medical record (1158F) 1158F 2023-08-11 No Data Available No Data Availa ble Advance care planning discussed and documented advance care plan or surrogate decision-maker was documented in the medical record. (1123F) 1123F 2023-08-11 No Data Available No Data Availa ble SBP < 130 (3074F) 3074F 2023-08-11 No Data Available No Data Available DBP <80 (3078F) 3078F 2023-08-11 No Data Available No Data Available No Data Available G8510 2023-08-11 No Data Available No Data Available Functional Status Assessed (1170F) 1170F 2023-08-11 No Data Available No Data Avail able Estab. patient 20-29min; 1 stable chronic or 2 minor; add add modifier 95 for video, modifier 93 for phone 05067 2024-07-06 No Data Available No Data Availa ble Medication Review by prescribing provider or pharmacist documented (1160F) 1160F 2024-07-06 No Data Available No Data Jannette ilable Pain Assessment - Pain Documented on a Pain Scale (1125F) 1125F 2024-07-06 No Data Available No Data Jannette ilable Advance Care Directive Advance care planning discussion documented in the medical record (1158F) 1158F 2024-07-06 No Data Available No Data Availa ble Advance care planning discussed and documented advance care plan or surrogate decision-maker was documented in the medical record. (1123F) 1123F 2024-07-06 No Data Available No Data Availa ble Medication List Documented (1159F) 1159F 2024-07-06 No Data Available No Data Jannette ilable Functional Status Assessed (1170F) 1170F 2024-07-06 No Data Available No Data Avail able RN, CN or CP time with patient by phone; use with 1111F, BP, A1c or other CPTII codes 52457 2024-10-26 No Data Available No Data Avai lable Medications prescribed in hospital were reviewed and reconciled against what they were taking prior to admission during today's visit. (1111F) 1111F 2024-10-26 No Data Available No Data Availa ble Estab. patient 10-29min; 1 minor problem; add add modifier 95 for video, modifier 93 for phone 60113 2024-11-01 No Data Available No Data Availa ble Medications prescribed in hospital were reviewed and reconciled against what they were taking prior to admission during today's visit. (1111F) 1111F 2024-11-01 No Data Available No Data Availa ble Medication List Documented (1159F) 1159F 2024-11-01 No Data Available No Data Jannette ilable Estab. patient 10-29min; 1 minor problem; add add modifier 95 for video, modifier 93 for phone 88436 2024-11-08 No Data Available No Data Availa ble Medications prescribed in hospital were reviewed and reconciled against what they were taking prior to admission during today's visit. (1111F) 1111F 2024-11-08 No Data Available No Data Availa ble Medication List Documented (1159F) 1159F 2024-11-08 No Data Available No Data Jannette ilable Functional Status Functional Category Effective Dates A&O x 33, at times confused which is not new 2024-11-01 ADL: Bathing Independent , D ressing Independent , Eating Independent , Ambulation Independent , Transferring Independent and Toileting Independent 2022-04-11 IADL: Medication Needs Liv tance , Meal Prep Needs Assistance , Shopping Needs Assistance and Driving or Public Transport Needs Assistance 2022-04-11 Falls in last 6 Months: Yes 2022-04-11 Social Supports - # of Inter actions with Friends/Family in a typical week: 2022-04-11 Mental Status No Information Assessments Date of Service Assessments 2022-04-11 05:08:46 OsteoporosisHyperten josiah associated with chronic kidney disease due to type 2 diabetes mellitusHyperlipidemia associated with type 2 diabetes mellitusType 2 diabetes mellitus with chronic kidney diseaseOveractive bladderNocturiaDry eye syndrome of bilateral lacrimal glandsLumbago with sciaticaOverweightAsthma with COPDChronic kidney disease, stage 3 2022-12-12 06:09:18 Asthma with COPDMana ged-Breo Ellipta-albuterol INHHas neb machine. Contingency plan:1. Start antibiotic(Azithromycin, doxycycline, or levaquin), prednisone 40 mg daily for 3 days, 2. Increase Neb treatments/MDI use to q4h x3 days3. Call CB at the first sign of SOB or increased cough and sputum production. 4. Schedule f/u with primary INSURANCE REPRESENTATIVE in 1-2 days. OsteoporosisManaged-alendronate weekly-routine diagnostics-follow up with pcpHypertension associated with chronic kidney disease due to type 2 diabetes twdpsodhNiopoad-Imzzvimowm-khhazwbysy succinate-routine follow up.Discussed low-salt dietwill monitor edema and weight, follows cardiologyMonitors BP dailyHyperlipidemia associated with type 2 diabetes mellitusCholesterol 122 TRIGLYCERIDES 100 HDL CHOLESTEROL 59 LDL CALCULATED 43 TC-HDLC RATIO 2.106/05/2022 Xacndfx-voatzxuqzeh-noybldu Lipid panel-healthy diet-follow up with pcpType 2 diabetes mellitus with chronic kidney diseaseGLYCATED HEMOGLOBIN A1C 7.6 (H) 10/11/22GLUCOSE 198 (H) 10/11/22GLOMERULAR FILTRATION RATE 95 10/11/2212Zsziucl-imjdpofki-kvpacmfw dietDoes not like to check BG at home. Fasting 150-160 range, recently increased metformin to 1000 BID, this should help to lower it futherOveractive owgtbsbNbdoxpj-Fruenvtam-idmhvjv follow up with xtiSvponogmMnimmfx-Ztjedlfpmz-pvhif fluid intake prior to bedtimeDry eye syndrome of bilateral lacrimal glandsManaged-artificial tearsLumbago with hbtbbybtOokpgxg-LqzmbbkWvktjtidorUwadaxn-bfxf-encourage regular exercise to include stretchingNo pain right nowChronic kidney disease, stage 3Managed, most recent GFR 98, 10/11/22-routine follow up-avoid nephrotoxic agentsActivity intoleranceWalks for 20 meters, feels has sensation of SOB. Leg edema. visited ER. 12/04-12/05/22 leg edema. Severe anemia, 2 u of RBC. No record received yet. No change in medication. Also have work up done for CHF, pending Echo appointment per daughter.Leg edema gone, but SOB persisted, using inhalers. Now investigating if she has CHF by PCP, keep appointment of Echo and FUs 2023-08-11 06:04:40 Other problems relat ed to medical facilities and other health care<Add contingency plans here>Asthma with COPDManaged-Breo Ellipta-albuterol INHHas neb machine. Contingency plan:1. Start antibiotic(Azithromycin, doxycycline, or levaquin), prednisone 40 mg daily for 3 days, 2. Increase Neb treatments/MDI use to q4h x3 days3. Call CB at the first sign of SOB or increased cough and sputum production. 4. Schedule f/u with primary INSURANCE REPRESENTATIVE in 1-2 days. OsteoporosisManaged-alendronate weekly-routine diagnostics-follow up with hgpTvlyijyofnqdQtaficf-Ajjsxskckk-rrspujlrkd succinateNadolol-routine follow up.Discussed low-salt dietwill monitor edema and weight, follows cardiologyMonitors BP dailyI f blood pressure is>170/90 and symptomatic with headache, dizziness, facial flashing, can take lisinopril 10 (give 1/2 tablet)*1, recheck BP in 1 hour, rest. If lower 90/50s and dizziness, lay flat, elevate legs over pillows, increase fluidsHyperlipidemia associated with type 2 diabetes mellitusCholesterol 122 TRIGLYCERIDES 100 HDL CHOLESTEROL 59 LDL CALCULATED 43 TC-HDLC RATIO 2.106/05/2022 Cezyatf-jesbyxadrog-nndiaab Lipid panel-healthy diet-follow up with pcpOveractive psqspdlIzkxopu-Svsveuyiz-cywsutb follow up with lmyKbzbsvsrGnbcwaq-Klxfjbgisx-sqswi fluid intake prior to bedtimeDry eye syndrome of bilateral lacrimal glandsManaged-artificial tearsLumbago with sciaticaManaged-TylenolSciatica to both sides. Radiates to knees on both sides. Worse with ambulation. Open to try cymbalta 30 mgLidocaine wbdywPlvqrxhixgFehorlm-czis-dnyhcjcnl regular exercise to include stretchingNo pain right nowActivity intoleranceWalks for 20 meters, feels has sensation of SOB. Leg edema. visited ER. 12/04-12/05/22 leg edema. Severe anemia, 2 u of RBC. No record received yet. No change in medication. Also have work up done for CHF, pending Echo appointment per daughter.Leg edema gone, but SOB persisted, using inhalers. Now investigating if she has CHF by PCP, keep appointment of Echo and FUsOther problems related to medical facilities and other health care.When member to call: 1. If bp is elevated sbp>150; dbp>90 or symptomatic-h/a, dizziness, cp, sob. 2. if there is a fall 3. if BS >300 or BS<90 or symptomatic; i.e., dizzy, off balance , shaky, general weakness. 4. if UTI symptoms arise-urinary frequency, dysuria, low and pain. 5. if pain in knees increases/ or joint pain increased Please remember to call CBContinue to see PCP. Follow-up with [facility] as needed for any acute or disease education needs that may arise 16/12.what should be done when the member calls: see each individual diagnosis for contingency planGanglion cystReoccurring last happened last year. It appears to be a ganglion cyst on the left mid-finger; see photo. Can use heat compress, if no resolving in 1 month, see PCP for aspiration. Can disappear by selfVertigoOccurs daily upon wakening. No SOB or chest palpitation nor chest pain. No N or V. Member is to take BP when this occurs, usually self resolving in 10 minutes, can try meclizine as needed.History of meningiomaEval[facility], Dr. Johns right frontal 5 x 4 x 4 cm calcified falcine meningioma with left arm and leg numbnessS/P resection 06/01/15; annual follow-up and MRIHistory of hepatitis BStableType 2 diabetes mellitus with renal complicationMetformin, stable If her blood sugar is less than 70, and she is shaking, sweaty, and feels nausea, give 6 oz of fruit juice, or 4 glucose tablet, or 6 oz of soda to quickly raise blood sugar, recheck in 10 minutes, if still low, repeat. If above 70 and no symptoms, eat a small protein rich snack.Liver cirrhosisFU with GI 2024-07-06 06:48:28 Asthma with COPDOste oporosisHypertensive heart disease with stage 3a chronic kidney diseaseHyperlipidemia associated with type 2 diabetes mellitusOveractive bladder with NocturiaType 2 diabetes mellitus with unspecified diabetic retinopathy with macular edema, and dry eye syndrome of bilateral lacrimal glandsLumbago with sciaticaOverweightType 2 diabetes mellitus with stage 3a chronic kidney diseaseActivity intoleranceOther problems related to medical facilities and other health careGanglion cystVertigoLiver cirrhosis with History of hepatitis B, Portal hypertension, Secondary esophageal varices without bleedingHistory of meningiomaUnspecified dementia, unspecified severity, with mood disturbance 2024-11-01 13:47:58 Liver cirrhosis with History of hepatitis B, Portal hypertension, Secondary esophageal varices without bleedingHistory of recent hospitalizationWeight lossDecreased appetiteFrailtyOther problems related to medical facilities and other health carePatient Education to avoid future hospitalization: Call [facility] if symptoms of illness develop. 2024-11-08 14:56:33 Patient Education to avoid future hospitalization: Call [facility] if symptoms of illness develop.Other problems related to medical facilities and other health careAsthma with COPDHypertensive heart disease with stage 3a chronic kidney diseaseHistory of recent hospitalizationWeight lossDecreased appetiteFrailty Plan of Care Date of Service Plans 2022-04-11 05:08:46 Pain Assessment - NO pain documented (1126F)Medication Review by prescribing provider or pharmacist documented (1160F)Medication List Documented (1159F)Functional Status Assessed (1170F)Advance Care Directive Advance care planning discussion documented in the medical record (1158F)BMI obtained (3008F)sbdbTelevideo new patient,40-59min; chronic exacerbation, 2 stable chronic or 1 acute illness add modifier 95Continue to see PCP. Follow-up with [facility] as needed for any acute or disease education needs that may arise.Managed-alendronate weekly-routine diagnostics-follow up with mboQjzymei-Gldwinkhni-picyepefcb succinate-routine follow oiLbzwvaq-uvfwtjssauv-przwcbm Lipid panel-healthy diet-follow up with iiuXnyrxgq-tvrqoztgd-ufyzolkb dietroutine Hgb A1c with last 7.2 on 01/05/20228369Arreyan-Aehviofov-myktizk follow up with kflMpozqil-Ebpvrojicu-bqvwo fluid intake prior to bedtimeManaged-artificial oxtnkKnyammf-Bhdbfmq-Afnwnxkw prn-patient educated to take with food to limit nausea and stomach upset.Dykzcru-oxxs-nfyvgkyjh regular exercise to include stretchingManaged-Breo Ellipta-albuterol INHManaged-routine follow up-avoid nephrotoxic agents 2022-12-12 06:09:18 influenza, unspecifi ed formulation (Influenza) (influenza, unspecified formulation)Medication Review by prescribing provider or pharmacist documented (1160F)Medication List Documented (1159F)Functional Status Assessed (1170F)Advance Care Directive Advance care planning discussion documented in the medical record (1158F)BMI obtained (3008F)SBP 130-139 (3075F)DBP <80 (3078F)Televideo 30-39min; chronic exacerbation, 2 stable chronic or 1 acute illness add modifier 95Advance care planning discussed and documented advance care plan or surrogate decision-maker was documented in the medical record. (1123F)Advance care planning discussed and documented in the medical record beneficiary/patient did not wish to or was unable to provide an advance care plan or name a surrogate decision-maker. (1124F)Pain Assessment - NO pain documented (1126F)Continue to see PCP. Follow-up with [facility] as needed for any acute or disease education needs that may arise. 2023-08-11 06:04:40 New Lidocaine-Priloc ricarda 2.5-2.5 % Crm 1gm to affected area BID PRN neuropathic pain #50 gram ZKm4Tgj Cymbalta 30 mg Cap delayed rel 1 capsule orally daily #30 capsule RFx1 Instr: Override contra-indication: lumbago with sciaticaNew Meclizine 12.5 mg Tab 1 tablet orally BID prn #30 tablet ZKx1Dtndyyuciw Review by prescribing provider or pharmacist documented (1160F)Medication List Documented (1159F)Functional Status Assessed (1170F)Advance Care Directive Advance care planning discussion documented in the medical record (1158F)BMI obtained (3008F)SBP < 130 (3074F)DBP <80 (3078F)Televideo 30-39min; chronic exacerbation, 2 stable chronic or 1 acute illness add modifier 95Advance care planning discussed and documented advance care plan or surrogate decision-maker was documented in the medical record. (1123F)Advance care planning discussed and documented in the medical record beneficiary/patient did not wish to or was unable to provide an advance care plan or name a surrogate decision-maker. (1124F)Pain Assessment - Pain Documented (1125F)Continue to see PCP. Follow-up with [facility] as needed for any acute or disease education needs that may arise. 2024-07-06 06:48:28 Functional Status As sessed (1170F)Advance Care Directive Advance care planning discussion documented in the medical record (1158F)Advance care planning discussed and documented advance care plan or surrogate decision-maker was documented in the medical record. (1123F)SBPDBPEstab. patient 20-29min; 1 stable chronic or 2 minor; add add modifier 95 for video, modifier 93 for phoneMedication List Documented (1159F)Medication Review by prescribing provider or pharmacist documented (1160F)Pain Assessment - Pain Documented on a Pain Scale (1125F)Continue to see PCP. Follow-up with [facility] as needed for any acute or disease education needs that may arise.Managed-Breo Ellipta-albuterol INHHas neb machine. Contingency plan:1. Start antibiotic(Azithromycin, doxycycline, or levaquin), prednisone 40 mg daily for 3 days, 2. Increase Neb treatments/MDI use to q4h x3 days3. Call CB at the first sign of SOB or increased cough and sputum production. 4. Schedule f/u with primary INSURANCE REPRESENTATIVE in 1-2 days. 07/06/24-Continue INH as directed Avoid cigarette smoke, smoke from fireplaces, and wood-burning stoves, avoid environmental exposures such as car exhaust fumes and avoid outdoor activities/exercise when pollution levels are high. Use zippered covers on mattresses and pillows, wash bedding in hot water, and remove clutter, avoid mold, avoid pets and cockroaches, avoid stress, cold air may trigger a flare, Avoid aerosol sprays and perfumes. Follow up prn.Managed-alendronate weekly-routine diagnostics-follow up with pcp07/06/24-Eat a balanced diet with enough calcium, vitamin D, and protein. Good sources of protein include plant proteins like beans and nuts, low-fat dairy, fish, skinless poultry, and lean cuts of meat. Participate in regular physical activity, such as weight-bearing exercises, to help keep bones strong and lower the risk of falls. Keep routine follow up with local provider as scheduled and follow up with CB prn.Hxoqntb-Odqtzotrnv-sbmqzfbciz succinateNadolol-routine follow up.Discussed low-salt dietwill monitor edema and weight, follows cardiologyMonitors BP dailyI f blood pressure is>170/90 and symptomatic with headache, dizziness, facial flashing, can take lisinopril 10 (give 1/2 tablet)*1, recheck BP in 1 hour, rest. If lower 90/50s and dizziness, lay flat, elevate legs over pillows, increase /11/25-continue CV medications. Monitor Bp daily and prn. Diabetic diet with low sodium and exercise as tolerated. Follow up 90 days.Cholesterol 122 TRIGLYCERIDES 100 HDL CHOLESTEROL 59 LDL CALCULATED 43 TC-HDLC RATIO 2.106/05/2022 Emgunhs-wicvctkewrh-cooetbd Lipid panel-healthy diet-follow up with wksPkwndbz-Tfaxwjlqi-wupvipy follow up with pcpManaged-artificial tears07/06/24-continue DM medications as directed. Monitor BG levels daily and prn. Diabetic diet with low sodium, exercise as tolerated. Routine follow up with Ophthalmology/Retina specialist to complete eye exams.Managed-TylenolSciatica to both sides. Radiates to knees on both sides. Worse with ambulation. Open to try cymbalta 30 mgLidocaine onhmnCsjyilm-qand-vdupwjmqs regular exercise to include stretchingNo pain right now07/06/24Eat more fruits, vegetables, and whole grains, lean proteins and healthy fats Limit refined carbohydrates, sugar, and sweetened foods, Eat smaller portions, Eat slowly. Get routine exercise for at least 30 minutes 3 times weekly, start slow and work up. Get adequate sleep and maintain a healthy weight. Follow up prn.Managed, most recent GFR 98, 10/11/22-routine follow up-avoid nephrotoxic pqarct64/11/25-Avoid nephrotoxic agents. Strict dietary management with reduced sodium, phosphorus, and potentially potassium depending on lab values, regular moderate exercise, blood pressure control, the condition and slow progression.Walks for 20 meters, feels has sensation of SOB. Leg edema. visited ER. 12/04-12/05/22 leg edema. Severe anemia, 2 u of RBC. No record received yet. No change in medication. Also have work up done for CHF, pending Echo appointment per daughter.Leg edema gone, but SOB persisted, using inhalers. Now investigating if she has CHF by PCP, keep appointment of Echo and FUs.When member to call: 1. If bp is elevated sbp>150; dbp>90 or symptomatic-h/a, dizziness, cp, sob. 2. if there is a fall 3. if BS >300 or BS<90 or symptomatic; i.e., dizzy, off balance , shaky, general weakness. 4. if UTI symptoms arise-urinary frequency, dysuria, low and pain. 5. if pain in knees increases/ or joint pain increased Please remember to call CBContinue to see PCP. Follow-up with [facility] as needed for any acute or disease education needs that may arise 16/12.what should be done when the member calls: see each individual diagnosis for contingency planReoccurring last happened last year. It appears to be a ganglion cyst on the left mid-finger; see photo. Can use heat compress, if no resolving in 1 month, see PCP for aspiration. Can disappear by selfOccurs daily upon wakening. No SOB or chest palpitation nor chest pain. No N or V. Member is to take BP when this occurs, usually self resolving in 10 minutes, can try meclizine as needed.FU with GI07/06/24-stable, patient continues to follow up with local GI for management.Evaluated by [facility] neurosurgery starting in October 2014, Dr. Johns right frontal 5 x 4 x 4 cm calcified falcine meningioma with left arm and leg numbnessS/P resection 06/01/15; annual follow-up and MRI07/06/24-stable, continues to follow up with local provider annually for surveillance.Rx: on sertralineFamily / CG supportCalm and supportive environment, keep a consistent routine with ADLs engaging in physical activities such as walking can decrease mood / behavior issues. Follow up prn. 2024-11-01 13:47:58 Discharge medication s reconciled with current medication listAdvance care planning discussed and documented advance care plan or surrogate decision-maker was documented in the medical record. (1123F)Estab. patient 10-29min; 1 minor problem; add add modifier 95 for video, modifier 93 for phonePCP visit is planned for: 12/27/24FU with GI10/21/24-10/22/24 [facility]: Hospitalized with anemia, concern for GI B. Received IV iron and one unit PRBC. 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 Plan for capsule endoscopy: 11/10/24. Continues with oral iron repletion.Hospital discharge paperwork requested/reviewed. [facility] 10/21/24-10/22/24, anemiaReason for Hospitalization and summary of hospital course: Subjective: Spoke to daughter Debbi and member. They have follow up to do a capsule endoscopy on 11/10/24. Denies abdominal pain, hematemesis, hematochezia. She has dark BMs, however she is on oral iron. Continues to feel fatigued. At times confused, doesn't understand what people are saying to her but this is not new. Has been experiencing weight loss due to low appetite. Weighed 149 lbs today, 11 lb weight loss since June 2024. She is not taking any nutritional supplements, would like to try Ensure. No falls since she has returned home. Discussed keeping her hydrated, count to 10 with positional changes, july in place prior to ambulating. She has an assistive device, but she does not like to use it. Daughter will encourage her to use it, discussed she can experience dizziness and fatigue due to anemia. Home Health or DME needs: Ensure for weight lossDiscussed risks or red flags for readmission/contingency plan.capsule endoscopy: 11/10/24, PCP visit is planned for: 12/27/24Advance care planning discussion - See LegalDaughter reports appetite is decreased over the past few months. Weight loss from 160 lbs in June 2024 > 149 lbs in October 2024 which is greater than 5% unintentional weight loss in the last 3-6 months. BMI still within healthy range at 24.79. Will order Ensure twice daily due to ongoing weight loss, decreased appetite, weakness, fatigue, frequent falls..When member to call: 1. If bp is elevated sbp>150; dbp>90 or symptomatic-h/a, dizziness, cp, sob. 2. if there is a fall 3. if BS >300 or BS<90 or symptomatic; i.e., dizzy, off balance , shaky, general weakness. 4. if UTI symptoms arise-urinary frequency, dysuria, low and pain. 5. if pain in knees increases/ or joint pain increased Please remember to call CBContinue to see PCP. Follow-up with [facility] as needed for any acute or disease education needs that may arise 16/12.what should be done when the member calls: see each individual diagnosis for contingency plan 2024-11-08 14:56:33 Discharge medication s reconciled with current medication listAdvance care planning discussed and documented advance care plan or surrogate decision-maker was documented in the medical record. (1123F)Estab. patient 10-29min; 1 minor problem; add add modifier 95 for video, modifier 93 for phoneMedications prescribed in hospital were reviewed and reconciled against what they were taking prior to admission during today's visit. (1111F)PCP visit is planned for:< add contingency plans here>Managed-Breo Ellipta-albuterol INHHas neb machine. Contingency plan:1. Start antibiotic(Azithromycin, doxycycline, or levaquin), prednisone 40 mg daily for 3 days, 2. Increase Neb treatments/MDI use to q4h x3 days3. Call CB at the first sign of SOB or increased cough and sputum production. 4. Schedule f/u with primary INSURANCE REPRESENTATIVE in 1-2 days. 07/06/24-Continue INH as directed Avoid cigarette smoke, smoke from fireplaces, and wood-burning stoves, avoid environmental exposures such as car exhaust fumes and avoid outdoor activities/exercise when pollution levels are high. Use zippered covers on mattresses and pillows, wash bedding in hot water, and remove clutter, avoid mold, avoid pets and cockroaches, avoid stress, cold air may trigger a flare, Avoid aerosol sprays and perfumes. Follow up prn.11/08/24 Breathing is ok.Qjjaxdr-Llvevbbssa-zpyttlxebl succinateNadolol-routine follow up.Discussed low-salt dietwill monitor edema and weight, follows cardiologyMonitors BP dailyI f blood pressure is>170/90 and symptomatic with headache, dizziness, facial flashing, can take lisinopril 10 (give 1/2 tablet)*1, recheck BP in 1 hour, rest. If lower 90/50s and dizziness, lay flat, elevate legs over pillows, increase fluidscontinue CV medications. Monitor Bp daily and prn. Diabetic diet with low sodium and exercise as tolerated. Follow up 90 days.Hospital discharge paperwork requested/reviewed. [facility] 10/21/24-10/22/24, anemiaReason for Hospitalization and summary of hospital course: Subjective: Spoke to daughter Debbi and member. They have follow up to do a capsule endoscopy on 11/10/24. Denies abdominal pain, hematemesis, hematochezia. She has dark BMs, however she is on oral iron. Continues to feel fatigued. At times confused, doesn't understand what people are saying to her but this is not new. Has been experiencing weight loss due to low appetite. Weighed 149 lbs today, 11 lb weight loss since June 2024. She is not taking any nutritional supplements, would like to try Ensure. No falls since she has returned home. Discussed keeping her hydrated, count to 10 with positional changes, july in place prior to ambulating. She has an assistive device, but she does not like to use it. Daughter will encourage her to use it, discussed she can experience dizziness and fatigue due to anemia. Home Health or DME needs: Ensure for weight lossDiscussed risks or red flags for readmission/contingency plan.capsule endoscopy: 11/10/24, PCP visit is planned for: 12/27/24Advance care planning discussion - See LegalDaughter reports appetite is decreased over the past few months. Weight loss from 160 lbs in June 2024 > 149 lbs in October 2024 which is greater than 5% unintentional weight loss in the last 3-6 months. BMI still within healthy range at 24.79. Will order Ensure twice daily due to ongoing weight loss, decreased appetite, weakness, fatigue, frequent falls. 11/08/24 wanted to discuss to have vanilla flavor glucerna, but as member BMI is 25, may not be able to be approved, it's better to call back to company to check when vanilla is available.Call if you have any questions, comments, or concerns.Keep taking your medications as prescribed. Goals Date Goal 2022-04-11 Remember to 2022-04-11 Call me if 2022-04-11 Keep it up 2022-12-12 Keep up with Echo ap pointment, FU 2023-08-11 FU as needed for sci atica. 2024-11-08 Remember to follow u p with PCP and specialists as directed. Health Concerns Date Concern 2024-11-08 Visit completed by lizeth fuentes. Patient/Guardian agreed to visit via telehealth. Today, patient has chief complaint of: recent hospitalization.Hospital discharge paperwork requested/reviewed. 2024-11-08 Tell me about your recent hospital stay(s) or ER visit(s) and precipitating factors: Iron infusionReason for Hospitalization and summary of hospital course: Transition of Care RN Routine Follow-up [facility] CallH[facility] date: 10/21/2024Hospital discharge date: 10/22/2024Discharge diagnosis: Iron deficiency anemia Spoke to: The member's daughterSymptoms present from hospitalization: The member had abnormal labs before the hospitalization. She received blood transfusion at the hospital. Has done colonoscopy and EGD, no bleeding found, capsule endoscopy on 11/10/24. Another round of iron infusion on , will continue to investigate why iron loss was so rapid. PCP visit is planned for: 12/27/24New symptoms or problems: Per daughter: The member is still tired, and has a headache when she wakes up. Getting tired when active.[Risks or red flags for readmission/contingency plan?] anemia 2024-11-08 Home Health or DME n eeds: none
--- OUTSIDE RECORDS SUMMARY | 2024-12-13 12:56 | XMS_ITS | Data Portability ---
Author Organization [facility], [address] Address [address] [place] [address] Assessment No assessment recorded. Plan of Treatment Reminders Order Date Submit Date Provider Last Modified By Organization Details Last Modified Time Details Appointments None recorded. Lab rapid SARS CoV 2 Ag, QL IA, respiratory specimen 2022 023 [email or web address] [facility] [address], [address] [place], [address], 3 11:10:56 Referral None recorded. Procedures None recorded. Surgeries None recorded. Imaging None recorded. Medication Orders prednisone 20 mg tablet 2022 023 [facility] #[id number], [address] [facility] [place], [address], 3 11:42:43 benzonatate 200 mg capsule 2022 023 [facility]armacy #256, [address] [facility] [place], [address], 3 11:42:43 albuterol sulfate HFA 90 mcg/actuati on aerosol inhaler 2022 023 [facility]/Pharmacy #256, [address] [facility] [place], [address], 3 11:42:43 Allergy Relief (fluticason e) 50 mcg/actuati on nasal spray,suspe nsion 2022 023 [facility]armacy #256, [address] [facility] [place], [address], 11:42:44 Patient TargetsNo targets recorded. Patient Instructions Encounter Date Encounter Id Patient Instructions Last Modified By Organization Details Last Modified Time 06/18/2022 [id number] coronavirus (covid-19): care instructions Not available 06/18/2022 11:10:56 cough: care instructions Not available 06/18/2022 11:10:56 Acute bronchitis is a condition of the lower airway with self-limited inflammation that will eventually resolve on it's own. It is usually caused by a viral infection in 95% of cases, therefore an antibiotic is not needed. Unfortunately, these symptoms can persist for approximately 3 weeks, with occasional persistence for 4-6 weeks. Treatment for bronchitis is aimed at focusing on helping to relieve your symptoms and you can implement the following remedies below, as long as they do not interfere with your current medications, past medical history, or go against advice you have received from your primary care provider and/or a specialist. If you are concerned you can always ask a pharmacist your primary care provider prior to their use. Not available 06/18/2022 11:42:38 If you test positive for COVID-19, stay home for at least 5 days and isolate from others in your home. You are likely most infectious during these first 5 days. Wear a high-quality mask if you must be around others at home and in public. Do not go places where you are unable to wear a mask. For travel guidance, see [facility] s Travel webpage. Do not travel. Stay home and separate from others as much as possible. Use a separate bathroom, if possible. Take steps to improve ventilation at home, if possible. Don t share personal household items, like cups, towels, and utensils. Monitor your symptoms. If you have an emergency warning sign (like trouble breathing), seek emergency medical care immediately. If you had symptoms and: Your symptoms are improving You may end isolation after day 5 if: You are fever-free for 24 hours (without the use of fever-reducing medication). Your symptoms are not improving Continue to isolate until: You are fever-free for 24 hours (without the use of fever-reducing medication). Your symptoms are improving. Regardless of when you end isolation Until at least day 11: Avoid being around people who are more likely to get very sick from COVID-19. Remember to wear a high-quality mask when indoors around others at home and in public. Do not go places where you are unable to wear a mask until you are able to discontinue masking (see below). For travel guidance, see [facility] s Travel webpage. [email or web address] Not available 06/18/2022 11:10:55 Reason for Referral None Reported. Results Created Date Observation Date Name Description Value Unit Range Abnormal Flag Note LastModifiedBy Organization Detail LastModifiedTime 06/18/1906/18/2022 rapid SARS CoV 2 Ag, QL IA, respi rator y speci men Unknown Analyte Normal =Negat alma rosa Not Available [address] [place], [address], 06/18/2022 10:45:04 06/18/1906/18/2022 rapid SARS CoV 2 Ag, QL IA, respi rator y speci men Unknown Analyte negati ve Not Available [address] [place], [address], 06/18/2022 10:45:04 Result Notes None recorded. Problems Name Problem SNOMED Code Status Onset Date Resolution Date Notes Provider Name and Address Organization Details Recorded Time Diabetes mellitus 76358315 Active 2022 MK wallis, [place] - [facility] 10:47:49 Hypertensive disorder 66270738 Active 2022 MK HARTMAN null, [place] - [facility] 3 10:47:54 Tachycardia 2239616 Active 2022 MK wallis, [place] - [facility] 10:48:07 Problem Notes None recorded. Procedures Surgical History Date Name Laterality Status Provider Name and Address Organization Details Recorded Time extraction of cataract completed MK HARTMAN [place] - [facility] 06/18/2022 10:48:42 Imaging Results None recorded. Procedure Notes None recorded. Medical Equipment None Reported. Allergies No known drug allergies Medications Name Sig Start Date Stop Date Status Note LastModified by Organization Details LastModified Time benzonatate 200 mg capsule Take 1 capsule 3 times a day by oral route as needed for 7 days. 2022 active Not Available Not Available Not Avai lable prednisone 20 mg tablet Take 2 tablets every day by oral route in the morning for 3 days. 2022 active Not Available Not Available Not Avai lable albuterol sulfate HFA 90 mcg/actuatio n aerosol inhaler INHALE 2 PUFFS EVERY 4-6 HOURS BY INHALATION ROUTE NEEDED FOR 10 DAYS. active Not Available Not Available No t Available fluticasone propionate 50 mcg/actuatio n nasal spray,suspen josiah SPRAY 1 SPRAY BY INTRANASAL ROUTE TWICE A DAY DIRECTED active Not Available Not Available No t Available alendronate active Not Available Not A vailable Not Available pravastatin active Not Available Not A vailable Not Available metoprolol succinate active Not Available Not Available No t Available metformin active Not Available Not Jannette ilable Not Available cetirizine active Not Available Not Av ailable Not Available Myrbetriq active Not Available Not Jannette ilable Not Available omega 3 1,000 mg-dha 250 mg-epa 750 mg/5 mL oral liquid Take by oral route. active Not Available Not Available Not Available Vitals Date Recorded Body height Body mass index (BMI) Body weight Respiratory rate Body temperature Heart rate Oxygen saturation Oxygen saturation in Arterial blood by Pulse oximetry Systolic And Diastolic Provider Name and Address Organization Details Last Updated DateTime 3 165.1 cm 28.3 kg/m2 81615.7 g 20 /min 97.8 [degF] 74 /min 97 % 97 % 119/77 mm[Hg] MK Gonsales [facility] 3 10:49:54 Social History Question Answer Notes LastModified by [email or web address] ion Details LastModified Time Tobacco Smoking Status Never Smoker MK wallis [place] [facility] 06/18/2022 10:48:16 Have You Recently Traveled Abroad? No Information not available 06/18/2022 Sex: Unknown Functional Status Question Answer Note LastModified by Compositenceat ion Details LastModified Time Do you use any illicit or recreational drugs? No Information not available 06/18/2022 Do you or have you ever used any other forms of tobacco or nicotine? No Information not available 06/18/2022 What is your level of alcohol consumption? None Information not available 06/18/2022 Mental Status None recorded. Family History Relationship Description Onset Age of this Age Resolved Age Notes LastModified by Organization Details LastModified Time Mother Diabetes mellitus Not available 2022 10:48:33 Medical History No medical history recorded. Gynecological HistoryNo gynecological history recorded. Obstetrics History GPAL:G 0 P 0 0 0 0 Past Encounters Encounter ID Performer Location Encounter Start Date Encounter Closed Date Diagnosis/Indication Diagnosis SNOMED-CT Code Diagnosis ICD10 Code Diagnosis Note [id number] [place] [address] 03/09/2019 12:43:24 03/09/2019 13:54:50 [id number] [address] [place] [address] 12/05/2016 08:07:46 12/05/2016 08:54:57 [id number] [address] [place] [address] 10/26/2016 08:14:44 10/26/2016 11:04:29 [id number] Toby Lam, [employer] [address] [place] [address] 06/18/2022 10:29:36 06/18/2022 11:56:52 Exposure to SARS-CoV-2 051166573 Z20.822 Acute bronchitis 8607870 2 J20.9 Health Concerns Section Related Observation LastModified by Organization Detai ls LastModified Time None Recorded Concern Status LastModified by Organization Details LastModified Time None Recorded Advance Directives Directive None Recorded Payers Insurance Date Sequence Insurance Name Policy Number Policy Goddard Covered Member ID Goddard Member ID Guarantor Name 08/07/2022 1 [facility] Napoleon Perry [id number] Napoleon Perry Notes Date Note Type Note Provider Name and Address Organization Details Recorded Time 06/18/2022 text/html CongestionReport ed bypatient.Notes:nasal congestion with post nasal drip x 3 days. denies nay fever or fever with chills. no SOB or respiratory distress. Toby Lam NP [address] [place], [address], [place] - [facility] 06/18/2022 11:43:09 OBGyn Episode No OBEpisode recorded.
== END 2024-12-13 12:20 | disposition home or self-care (01) ==
LOC: HO.HSM 12:01
PROVIDERS: Visit Provider Registered Nurse
DX: F03.90 Unspecified dementia, unspecified severity, without behavioral disturbance, psychotic disturbance, mood disturbance, and anxiety (principal); G43.909 Migraine, unspecified, not intractable, without status migrainosus
CPT/HCPCS: 99214

== ENCOUNTER → 2024-12-13 12:00 | Outpatient (BNVA) | payer MEDICARE, SELFPAY | PROVIDERS: Visit Provider Registered Nurse | DX: F03.90 Unspecified dementia, unspecified severity, without behavioral disturbance, psychotic disturbance, mood disturbance, and anxiety (principal); G43.909 Migraine, unspecified, not intractable, without status migrainosus | CPT/HCPCS: 99212 ==